=== PATIENT | female | born 1945 | race Caucasian/White ===

== ENCOUNTER 2018-03-08 13:15 | Inpatient (IN) | payer BC ==
[~2018-03-08] VITALS: Ht 157.5 cm; Wt 43.1 kg
[2018-03-08] VITALS (7 sets, daily range): BP systolic 88–131; BP diastolic 46–66
--- NOTE | ~2018-03-08 | CON ---
[address] [address] CONSULTATION Name: KOREY RIGGINS Room: [address] IN M.R.#: [id number] Admission: 03/08/18 Attend Phys: Felicia Merino MD Discharge: Date of : 49 Report #: [id number] THIS REPORT FOR: //name// CC: Craig Merino DATE OF SERVICE: 03/14/2018 REQUESTING PHYSICIAN: Dr. Felicia Merino. REASON FOR CONSULT: Ileus. HISTORY OF PRESENT ILLNESS: This is a 72-year-old female with a history of cough, congestion and productive sputum, which was admitted to hospital on 03/08. The patient found to have pneumonia and has been treated with antibiotics since. Yesterday, the patient found to have abdominal distention and some nausea; therefore, CT of abdomen and pelvis was obtained, which showed dilated small and large bowel. Since then, she had a NG tube in place and was started on Reglan. Her abdomen is soft and she reports that she had two very small stools this morning. She denies any nausea or vomiting. The patient reports that she had a colonoscopy about a year and a half ago, which was negative. She denies previous issues with her GI tract. PAST MEDICAL HISTORY: Significant for history of COPD, dyslipidemia, hypertension and pneumonia. ALLERGIES: No known drug allergy. MEDICATIONS: Please refer to MAR. SOCIAL HISTORY: The patient is , smokes 1-2 pack of cigarettes per day for the past 40 years. She denies any alcohol use. FAMILY HISTORY: Negative for GI malignancy. PHYSICAL EXAMINATION: VITAL SIGNS: Reveals blood pressure of 146/67, respirations 16, pulse 89 and temperature 98.1. LUNGS: Clear. CARDIOVASCULAR: Regular. ABDOMEN: Soft, nontender and nondistended. Bowel sounds are positive, but diminished. NG tube in place. LABORATORY DATA: Reveal sodium of 142, potassium 4.0, BUN is 25, creatinine 0.6 [place] [address] CONSULTATION Name: KOREY RIGGINS Room: [address] IN [facility].#: [id number] Admission: 03/08/18 Attend Phys: Felicia Merino MD Discharge: Date of : 47 Report #: [id number] and glucose 108. Liver function tests are all within normal limit. Albumin is 2.2. WBC is 20.9 with hemoglobin of 11.3 and platelet of 252. IMAGING: As discussed above. ASSESSMENT AND PLAN: The patient with ileus who has been started on Reglan and is on NG tube to intermittent suction. We will continue NG tube until midnight, then we clamp it and order a KUB for tomorrow. We may also start her on clear liquids since she had two little stools this morning. To her Reglan, I will add erythromycin 250 IV b.i.d. We will make further recommendation after her x-ray tomorrow. By: 1642 [id number] Baez MD /nt
[2018-03-08] MEDS ORDERED: ASPIR 8181 MG PO (13:33)
[2018-03-08] MEDS ORDERED: ZOCOR20 MG PO (13:33)
[2018-03-08] MEDS ORDERED: MAXZIDE-25 MG1 EACH PO (13:34)
[2018-03-08] MEDS ORDERED: ACTONEL 35 MG35 M1 PO (13:34)
[2018-03-08] MEDS ORDERED: VITAMIN D2000 UNIT PO (13:34)
[2018-03-08 14:19] LABS: HEMATOCRIT 44.5 % (37.0-47.0); HEMOGLOBIN 14.6 gm/dL (12.0-15.0); MCH 30.8 pg (26.0-34.0); MCHC 32.7 g/dL (28.0-37.0); MCV 94.2 fL (80.0-100.0); MPV 9.6 fl. (7.2-11.1); NUCLEATED RBCS 0 /100WBC; PLATELET COUNT* 228 thou/uL (150-400); RBC 4.73 mil/uL (4.20-5.00); RDW-CV 13.4 % (10.5-14.5); WBC 25.4 thou/uL (4.0-11.0)
[2018-03-08 14:27] LABS: APTT 36.1 Seconds (25.0-31.3); INR 1.1; PROTIME 11.6 Seconds (9.20-11.50)
[2018-03-08 14:51] LABS: ABSOLUTE NEUTROPHILS 24.4 thou/uL (1.6-8.1); PLATELET ESTIMATE ADEQUATE
[2018-03-08 14:59] LABS: INFLUENZA A ANTIGEN None Detected (None Detect); INFLUENZA B ANTIGEN None Detected (None Detect)
[2018-03-08 15:44] LABS: BE -1.8 mmol/L (-2 to +3); HCO3 23.9 mmol/L (22.0-26.0); PCO2 43.8 mmHg (35.0-45.0); PO2 64.3 mmHg (75.0-100.0); pH 7.354 (7.340-7.450)
[2018-03-08 15:55] LABS: ANION GAP 12 mmol/L (7-16); BUN 36 mg/dL (7-18); CHLORIDE 96 mmol/L (98-107); CO2 29 mmol/L (21-32); CREATININE 1.1 mg/dL (0.6-1.3); GLUCOSE 94 mg/dL (70-99); SODIUM 137 mmol/L (136-145)
--- NOTE | 2018-03-08 16:02 | EKG ---
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 : 1945 Requested By: Carmelita Chau Order Number: [id number] MD: Herson Duenas Measurements Intervals [place] Rate: 80 P: 77 [place]: 144 QRS: 84 QRSD: 84 T: 72 QT: 379 QTc: 438 Interpretive Statements Sinus arrhythmia Borderline right axis deviation Compared to ECG 12/14/2007 17:54:49 no change Electronically Signed On 03-08-2018 16:02:32 DOG SITTER by Herson Duenas [email or web address] <ELECTRONICALLY SIGNED> By: Herson Duenas MD, [facility] 03/08/18 1602 1325 1325 Herson Duenas MD, [facility] /EPI
[2018-03-08 16:05] LABS: ALBUMIN 2.8 g/dL (3.4-5.0); ALKALINE PHOSPHATASE 123 U/L (46-116); LIPASE 44 U/L (73-393); MAGNESIUM 1.9 mg/dL (1.8-2.4); NT-PRO BRAIN NAT PEPTIDE 589 pg/mL (<300); SGOT 21 U/L (15-37); SGPT 16 U/L (30-65); TOTAL BILIRUBIN 0.8 mg/dL (<0.1-1.0); TOTAL PROTEIN 6.2 g/dL (6.4-8.2); TROPONIN-I LEVEL <0.06 ng/mL (<0.06)
[2018-03-08 20:09] LABS: URINE BILIRUBIN NEGATIVE (Negative); URINE BLOOD NEGATIVE (Negative); URINE CLARITY CLEAR; URINE COLOR YELLOW; URINE GLUCOSE-RANDOM NEGATIVE (Negative); URINE KETONES 1+ (Negative); URINE LEUKOCYTES NEGATIVE (Negative); URINE NITRITE NEGATIVE (Negative); URINE PROTEIN NEGATIVE (Negative); URINE SPECIFIC GRAVITY >= 1.030 (1.005-1.030); URINE UROBILINOGEN 0.2 E.U./dl (0.2-1.0)
[2018-03-09] VITALS (13 sets, daily range): BP systolic 99–137; BP diastolic 40–81
[2018-03-09 04:57] LABS: HEMATOCRIT 36.9 % (37.0-47.0); MCH 31.1 pg (26.0-34.0); MCHC 33.1 g/dL (28.0-37.0); MCV 93.7 fL (80.0-100.0); MPV 10.6 fl. (7.2-11.1); RBC 3.94 mil/uL (4.20-5.00); RDW-CV 13.6 % (10.5-14.5)
[2018-03-09 05:19] LABS: BE -5.1 mmol/L (-2 to +3); HCO3 20.9 mmol/L (22.0-26.0); PCO2 41.9 mmHg (35.0-45.0); PO2 112.9 mmHg (75.0-100.0); pH 7.315 (7.340-7.450)
[2018-03-09 05:45] LABS: ALBUMIN 1.9 g/dL (3.4-5.0); CALCIUM 7.7 mg/dL (8.5-10.1); CREATININE 0.7 mg/dL (0.6-1.3); MAGNESIUM 1.7 mg/dL (1.8-2.4); POTASSIUM 3.6 mmol/L (3.5-5.1); TOTAL BILIRUBIN 0.2 mg/dL (<0.1-1.0); TOTAL PROTEIN 5.7 g/dL (6.4-8.2)
[2018-03-09 05:48] LABS: HEMOGLOBIN 12.2 gm/dL (12.0-15.0)
[2018-03-10] VITALS (26 sets, daily range): BP systolic 89–124; BP diastolic 37–68
[2018-03-10 04:25] LABS: ABSOLUTE BASOPHILS 0.1 thou/uL (0.0-0.2); ABSOLUTE LYMPHOCYTES 0.3 thou/uL (0.8-5.3); ABSOLUTE MONOCYTES 0.5 thou/uL (0.0-1.2); ABSOLUTE NEUTROPHILS 21.3 thou/uL (1.6-8.1); BASOPHILS 0.4 %; HEMATOCRIT 35.7 % (37.0-47.0); HEMOGLOBIN 11.7 gm/dL (12.0-15.0); LYMPHOCYTES 1.4 %; MCH 30.9 pg (26.0-34.0); MCHC 32.7 g/dL (28.0-37.0); MCV 94.6 fL (80.0-100.0); MONOCYTES 2.4 %; NUCLEATED RBCS 0 /100WBC; PLATELET COUNT* 205 thou/uL (150-400); POLYS 95.8 %; RBC 3.77 mil/uL (4.20-5.00); RDW-CV 13.7 % (10.5-14.5); WBC 22.3 thou/uL (4.0-11.0)
[2018-03-10 04:49] LABS: CALCIUM 7.4 mg/dL (8.5-10.1); CREATININE 0.6 mg/dL (0.6-1.3); POTASSIUM 4.2 mmol/L (3.5-5.1); TOTAL BILIRUBIN 0.2 mg/dL (<0.1-1.0); TOTAL PROTEIN 5.7 g/dL (6.4-8.2)
[2018-03-11 00:01] VITALS: BP 121/60
[2018-03-11 04:18] VITALS: BP 108/45
[2018-03-11 05:09] LABS: HEMATOCRIT 35.5 % (37.0-47.0); HEMOGLOBIN 11.7 gm/dL (12.0-15.0); MCH 31.2 pg (26.0-34.0); MCHC 33.1 g/dL (28.0-37.0); MCV 94.4 fL (80.0-100.0); MPV 10.6 fl. (7.2-11.1); RBC 3.76 mil/uL (4.20-5.00); RDW-CV 13.7 % (10.5-14.5); WBC 13.2 thou/uL (4.0-11.0)
[2018-03-11 05:19] LABS: ALBUMIN 2.1 g/dL (3.4-5.0); CALCIUM 7.6 mg/dL (8.5-10.1); CREATININE 0.6 mg/dL (0.6-1.3); MAGNESIUM 2.2 mg/dL (1.8-2.4); POTASSIUM 4.1 mmol/L (3.5-5.1); TOTAL BILIRUBIN 0.2 mg/dL (<0.1-1.0); TOTAL PROTEIN 5.7 g/dL (6.4-8.2)
[2018-03-11 07:25] VITALS: BP 119/54
[2018-03-11 11:49] VITALS: BP 105/46
[2018-03-11 15:37] VITALS: BP 118/65
[2018-03-11 19:30] VITALS: BP 125/67
[2018-03-12] VITALS: BP 115/57
[2018-03-12 04:00] VITALS: BP 137/65
[2018-03-12 04:57] LABS: HEMATOCRIT 33.9 % (37.0-47.0); HEMOGLOBIN 11.3 gm/dL (12.0-15.0); MCH 31.3 pg (26.0-34.0); MCHC 33.2 g/dL (28.0-37.0); MCV 94.4 fL (80.0-100.0); MPV 9.7 fl. (7.2-11.1); RBC 3.59 mil/uL (4.20-5.00); RDW-CV 13.9 % (10.5-14.5); WBC 13.4 thou/uL (4.0-11.0)
[2018-03-12 05:10] LABS: CALCIUM 7.5 mg/dL (8.5-10.1); CREATININE 0.6 mg/dL (0.6-1.3); MAGNESIUM 2.2 mg/dL (1.8-2.4); POTASSIUM 4.2 mmol/L (3.5-5.1)
[2018-03-12 08:00] VITALS: BP 116/68
[2018-03-12 12:00] VITALS: BP 105/58
[2018-03-12 16:00] VITALS: BP 127/66
[2018-03-12 20:00] VITALS: BP 146/76
[2018-03-13] VITALS: BP 107/52
[2018-03-13 04:00] VITALS: BP 111/59
[2018-03-13 04:55] LABS: HEMATOCRIT 32.1 % (37.0-47.0); HEMOGLOBIN 10.7 gm/dL (12.0-15.0); MCH 31.3 pg (26.0-34.0); MCHC 33.4 g/dL (28.0-37.0); MCV 93.8 fL (80.0-100.0); MPV 9.6 fl. (7.2-11.1); RBC 3.42 mil/uL (4.20-5.00)
[2018-03-13 05:40] LABS: ALBUMIN 2.2 g/dL (3.4-5.0); CALCIUM 7.7 mg/dL (8.5-10.1); CREATININE 0.6 mg/dL (0.6-1.3); MAGNESIUM 2.3 mg/dL (1.8-2.4); TOTAL BILIRUBIN 0.3 mg/dL (<0.1-1.0); TOTAL PROTEIN 5.3 g/dL (6.4-8.2)
[2018-03-13 07:54] VITALS: BP 148/70
--- NOTE | 2018-03-13 10:39 | CON ---
[address] [address] CONSULTATION Name: KOREY RIGGINS Room: [address] IN M.R.#: [id number] Admission: 03/08/18 Attend Phys: Felicia Merino MD Discharge: Date of : 49 Report #: [id number] THIS REPORT FOR: //name// CC: Craig Merino MD DATE OF SERVICE: 03/12/2018 PULMONARY CONSULTATION ATTENDING PHYSICIAN: Felicia Merino MD LOCATION: She is located in room 202 and I do not know who her primary care physician is. INDICATION FOR CONSULTATION: COPD, slowly resolving pneumonia. CLINICAL SUMMARY: The patient is a 72-year-old female, current smoker, was admitted to the hospital several days ago after 5-7 days of malaise, nausea with vomiting, cough with yellow sputum. She has had a history of recurrent bronchitis. She thinks she had a diagnosis of pneumonia some 30 years ago. She is supposed to be using Spiriva at home and maybe a short-acting inhaler. She sees Dr. Martín Borjas, my partner in the office. She has not been oxygen or steroid dependent. I am not sure if she is up-to-date on her immunizations or not, that history cannot be obtained. I see her also in the office as part of my practice for his lung problems also. The patient was still smoking 1 pack to 1-1/2 packs of cigarettes a day, states she quit maybe 3 or 4 days ago. She had moderate high grade fever, 37-38 degrees with some chills and sweats. She had some difficulty swallowing. She has had a persistent right middle lobe and right lower lobe infiltrate. Gases have been good on 2 liters. She is not on oxygen at home. 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 PAST MEDICAL HISTORY: She has a history of COPD, again sees Dr. Borjas. Has a history of hyperlipidemia and also osteopenia and some mild peripheral edema. PAST SURGICAL HISTORY: None. MEDICATIONS: Her outpatient medications include simvastatin 20 mg daily, aspirin 81 mg daily, Actonel 35 mg p.o. every 3 weeks, Maxzide 25 mg 1 tablet daily for edema, vitamin D3 at 2000 units once daily. Current medications in the hospital include DuoNeb treatments every 4 hours, Reglan 10 mg IV push every 6 hours, Solu-Medrol 62.5 mg IV every 8 hours, benzonatate, Tessalon Perles 100 mg q. 6, ceftriaxone 1 g [place] [address] CONSULTATION Name: JESSI RIGGINSNA Alan Room: [address] IN M.R.#: [id number] Admission: 03/08/18 Attend Phys: Felicia Merino MD Discharge: Date of : 47 Report #: [id number] and was on azithromycin that has been resolved. Still on a Nicoderm patch 21 mg daily. ALLERGIES: She has no known medical allergies. FAMILY HISTORY: Negative for premature cardiopulmonary disease. SOCIAL HISTORY: Again, she is . Her has lung problems also. She smokes about 1 pack or 1-1/2 packs a day, has a 60-65 pack year history of smoking. Denies any alcohol or illicit drug use. 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 REVIEW OF SYSTEMS: A 14-point review of systems reviewed and negative except for pertinent positives in HPI. PHYSICAL EXAMINATION: GENERAL: This is an ill-appearing 72-year-old female accompanied by her . VITAL SIGNS: Blood pressure is 128/66, heart rate is 96, respirations were 16, slightly labored, temperature is 36.8 degrees, saturation on 2 liters is 94%. She is 5 feet 3 inches tall and weight is 53 kilograms or 112 pounds. BMI is 21. HEENT: Mucous membranes are moist. Sinuses nontender. Pharynx shows moist membranes without exudate. Tongue is clear. NECK: Supple, without nodes. She has no increase in jugular venous pressure. Her sternocleidomastoid muscles appear to be hypertrophied from COPD. CHEST: Shows bilateral rhonchi and expiratory wheeze, mostly posteriorly with prolonged expiratory phase and crackles in the right lower lobe more than the left lower lobe. Some use of accessory muscles is noted. CARDIOVASCULAR: Shows decreased heart tones, regular rate and rhythm of 96. No murmur, gallop or rub. ABDOMEN: Soft, without masses or megaly. EXTREMITIES: No calf tenderness. No cyanosis, clubbing or edema. NEUROLOGIC: Strength is 2-3/5+. SKIN: Dry and intact. LABORATORY DATA: From today, 03/12/2018, hemoglobin is 11, white count 13,400, MCV is 94 and platelets are 194,000, normal differential was noted. She has increased absolute neutrophil count. Chemistry today shows sodium 142, potassium 4.2, carbon dioxide 28, BUN is 30, creatinine 0.6, glucose is 134, calcium is 7.5 and LFTs within normal limits. Albumin is low at 2.1, prealbumin is low at 14.9. Lipase was normal. Other serology, influenza A and B nasopharyngeal swabs were negative. She has not had a respiratory viral panel. ABGs on 2 liters from 03/09/2018 showed a pO2 of 112, pH of 7.31, pCO2 is 42, bicarbonate is 20, O2 sats 97%. Base excess was negative 0.5. Chest x-ray shows right middle lobe, right lower lobe pneumonia [place] [address] CONSULTATION Name: KOREY RIGGINS Alan Room: [address] IN [facility].#: [id number] Admission: 03/08/18 Attend Phys: Felicia Merino MD Discharge: Date of : 47 Report #: [id number] hyperinflation, no masses or tumors are noted. IMPRESSION: 1. Community-acquired pneumonia, right middle lobe, right lower lobe, could be related to intermittent aspiration, could be related to day care exposure. 2. Chronic tobacco use with probably moderate chronic obstructive pulmonary disease. She is not oxygen or steroid dependent at least at this time. 3. Bronchospasm, needs better control. PLAN: Continue current medications. We will add oral bronchodilators, albuterol tablets, Montelukast 10 mg daily to see if we can cut down her wheezing. I have already increased her DuoNeb treatments to every 4 hours [id number] to see if we can cut down some of her bronchospasm, probably another chest x-ray in 48 hours if needed, then we can do a CT of her chest and make sure there are no masses or lesions or endobronchial lesions. No evidence of sinus problems causing her issues as far as recurrent pneumonias, but certainly, her esophageal reflux and intermittent aspiration may be a contributing factor. I do not think she needs fiberoptic bronchoscopy at least at this time, but we will keep that as a consideration. I will try and get the outpatient records from Dr. Borjas and see if we have any PFTs on the patient to see how significant her obstructive airways disease is. Thanks again for allowing us to participate in this lady's care. We will follow up along with you while she is in the hospital. <ELECTRONICALLY SIGNED> By: González Vences MD 03/13/18 1039 1655 [id number] Warner MD /nt
[2018-03-13 12:00] VITALS: BP 130/62
[2018-03-13 16:00] VITALS: BP 102/51
[2018-03-13 20:00] VITALS: BP 147/76
[2018-03-14] VITALS: BP 128/58
[2018-03-14 04:00] VITALS: BP 115/51
[2018-03-14 04:38] LABS: HEMATOCRIT 34.7 % (37.0-47.0); HEMOGLOBIN 11.3 gm/dL (12.0-15.0); MCH 30.8 pg (26.0-34.0); MCHC 32.6 g/dL (28.0-37.0); MCV 94.4 fL (80.0-100.0); RBC 3.68 mil/uL (4.20-5.00); RDW-CV 13.9 % (10.5-14.5); WBC 20.9 thou/uL (4.0-11.0)
[2018-03-14 04:42] LABS: CALCIUM 7.8 mg/dL (8.5-10.1); CREATININE 0.6 mg/dL (0.6-1.3); MAGNESIUM 2.3 mg/dL (1.8-2.4)
[2018-03-14 08:16] VITALS: BP 135/68
[2018-03-14 12:00] VITALS: BP 121/58
[2018-03-14 16:00] VITALS: BP 146/67
[2018-03-14 20:00] VITALS: BP 145/66
[2018-03-15] VITALS: BP 127/61
[2018-03-15 04:00] VITALS: BP 128/69
[2018-03-15 04:29] LABS: HEMATOCRIT 35.1 % (37.0-47.0); HEMOGLOBIN 11.4 gm/dL (12.0-15.0); MCH 30.4 pg (26.0-34.0); MCHC 32.5 g/dL (28.0-37.0); MCV 93.6 fL (80.0-100.0); MPV 10.2 fl. (7.2-11.1); RBC 3.75 mil/uL (4.20-5.00); RDW-CV 13.8 % (10.5-14.5); WBC 20.4 thou/uL (4.0-11.0)
[2018-03-15 04:42] LABS: ALBUMIN 2.4 g/dL (3.4-5.0); CALCIUM 7.7 mg/dL (8.5-10.1); CREATININE 0.5 mg/dL (0.6-1.3); MAGNESIUM 2.2 mg/dL (1.8-2.4); POTASSIUM 4.2 mmol/L (3.5-5.1); TOTAL BILIRUBIN 0.5 mg/dL (<0.1-1.0); TOTAL PROTEIN 5.5 g/dL (6.4-8.2)
[2018-03-15 08:00] VITALS: BP 147/57
[2018-03-15 11:56] VITALS: BP 119/55
[2018-03-15 15:49] VITALS: BP 120/57
[2018-03-15 19:30] VITALS: BP 118/45
[2018-03-16] VITALS: BP 108/40
[2018-03-16 04:00] VITALS: BP 121/58
[2018-03-16 08:06] VITALS: BP 103/61
[2018-03-16 11:45] VITALS: BP 111/45
[2018-03-16 16:00] VITALS: BP 98/62
[2018-03-16 19:30] VITALS: BP 111/45
[2018-03-17] VITALS: BP 102/48
[2018-03-17 04:30] VITALS: BP 106/48
[2018-03-17 08:02] VITALS: BP 109/51
[2018-03-17 12:39] VITALS: BP 134/65
[2018-03-17 16:52] VITALS: BP 132/53
[2018-03-17 19:40] VITALS: BP 99/51
[2018-03-18] VITALS: BP 110/49
[2018-03-18 04:00] VITALS: BP 118/55
[2018-03-18 08:00] VITALS: BP 112/46
[2018-03-18 12:00] VITALS: BP 122/57
[2018-03-18 16:44] VITALS: BP 106/37
[2018-03-18 19:50] VITALS: BP 119/50
[2018-03-19] VITALS: BP 113/57
[2018-03-19 04:00] VITALS: BP 124/47
[2018-03-19 08:00] VITALS: BP 111/70
[2018-03-19 12:00] VITALS: BP 102/45
[2018-03-19 12:16] LABS: HEMATOCRIT 33.6 % (37.0-47.0); HEMOGLOBIN 10.9 gm/dL (12.0-15.0); MCH 30.6 pg (26.0-34.0); MCHC 32.5 g/dL (28.0-37.0); MCV 93.9 fL (80.0-100.0); MPV 9.7 fl. (7.2-11.1); NUCLEATED RBCS 0 /100WBC; PLATELET COUNT* 226 thou/uL (150-400); RBC 3.58 mil/uL (4.20-5.00); RDW-CV 13.9 % (10.5-14.5); WBC 29.4 thou/uL (4.0-11.0)
[2018-03-19 13:02] LABS: ABSOLUTE LYMPHOCYTES 0.9 thou/uL (0.8-5.3); ABSOLUTE MONOCYTES 0.9 thou/uL (0.0-1.2); ABSOLUTE NEUTROPHILS 27.6 thou/uL (1.6-8.1); PLATELET ESTIMATE ADEQUATE
[2018-03-19 13:03] LABS: ANISOCYTOSIS 1+; POIKILOCYTOSIS 1+
[2018-03-19 15:30] VITALS: BP 104/45
[2018-03-19 19:50] VITALS: BP 112/49
[2018-03-20] VITALS: BP 120/47
[2018-03-20 04:00] VITALS: BP 104/44
[2018-03-20 08:00] VITALS: BP 107/47
[2018-03-20 11:30] VITALS: BP 114/39
[2018-03-20] MEDS ORDERED: ALBUTEROL SULFAT2 MG PO (15:22)
[2018-03-20] MEDS ORDERED: ALBUTEROL2.5 MG/31 INH (15:23)
[2018-03-20] MEDS ORDERED: LORAZEPAM 22 MG/1 ML IV PUSH (15:25)
[2018-03-20] MEDS ORDERED: BISACODYL SUPP10 MG RECTAL (15:26)
[2018-03-20] MEDS ORDERED: IPRAT-ALBUT 0.5-3 ML INH (15:28)
[2018-03-20] MEDS ORDERED: ERYTHROMYCIN250 M1 PO (15:29)
[2018-03-20] MEDS ORDERED: FLEET ENEMA133 ML RECTAL (15:30)
[2018-03-20] MEDS ORDERED: ENOXAPARIN40 MG/0.1 SUBQ (15:31)
[2018-03-20] MEDS ORDERED: MIRALAX17 GM PO (15:33)
[2018-03-20] MEDS ORDERED: ALUM-MAG HYDRO360 ML PO (15:36)
[2018-03-20] MEDS ORDERED: NICOTINE TRANSD21 M1 (15:37)
[2018-03-20] MEDS ORDERED: SINGULAIR 10 MG10 M1 PO (15:38)
[2018-03-20] MEDS ORDERED: PEPCID20 MG PO (15:38)
[2018-03-20] MEDS ORDERED: SCOPOLAMINE1 EACH TRANSDERM (15:39)
[2018-03-20] MEDS ORDERED: TESSALON PERLE100 MG PO (15:39)
[2018-03-20] MEDS ORDERED: TYLENOL EXTRA500 MG PO (15:41)
[2018-03-20] MEDS ORDERED: ONDANSETRON HCL4 M2 PO (15:41)
[2018-03-20] MEDS ORDERED: PREDNISONE 20 M20 MG PO (15:42)
[2018-03-20 15:43] VITALS: BP 114/39
[2018-03-20 16:00] VITALS: BP 126/49
== END 2018-03-20 16:53 | DRG 871 ==
LOC: M.ERS 13:15 → M.ICU 15:05 → M.2W 15:05 → M.TBA-ER 15:05 → M.ICU 17:06 → M.2W 03-10 17:00
PROVIDERS: Internal Medicine; Physician Assistant; ADMIT Internal Medicine
PROC: 02HV33Z Insertion of Infusion Device into Superior Vena Cava, Percutaneous Approach (ICD-10-PCS; principal; 2018-03-08)
PROC: 0D9670Z Drainage of Stomach with Drainage Device, Via Natural or Artificial Opening (ICD-10-PCS; 2018-03-14)
DX: A41.9 Sepsis, unspecified organism (principal); J15.6 Pneumonia due to other Gram-negative bacteria; K56.7 Ileus, unspecified; K56.600 Partial intestinal obstruction, unspecified as to cause; J44.0 Chronic obstructive pulmonary disease with (acute) lower respiratory infection; J44.1 Chronic obstructive pulmonary disease with (acute) exacerbation; I95.9 Hypotension, unspecified; I10 Essential (primary) hypertension; K59.00 Constipation, unspecified; R09.02 Hypoxemia; M81.0 Age-related osteoporosis without current pathological fracture; F17.210 Nicotine dependence, cigarettes, uncomplicated; E78.5 Hyperlipidemia, unspecified; E78.00 Pure hypercholesterolemia, unspecified; Z79.82 Long term (current) use of aspirin; Z79.899 Other long term (current) drug therapy

== ENCOUNTER 2018-03-20 16:03 | Inpatient (IN) | payer BC ==
[~2018-03-20] VITALS: Ht 157.5 cm; Wt 41.0 kg
--- NOTE | ~2018-03-20 | CON ---
[address] [address] CONSULTATION Name: GILSONKOREY M Room: [address] IN M.R.#: [id number] Admission: 03/20/18 Attend Phys: Alma Coleman DO Discharge: Date of : 47 Report #: [id number] THIS REPORT FOR: //name// CC: Craig Coleman DATE OF SERVICE: 03/22/2018 HISTORY OF PRESENT ILLNESS: This is a pleasant 73-year-old female with past medical history significant for hypertension, COPD and chronic constipation. The patient was admitted with an episode of bronchitis and is currently in rehabilitation. GI service has been consulted for evaluation of her chronic constipation. The patient reports that she has about 1 bowel movement every 3-4 days at home; however, this is soft and well formed, and the patient denies having any abdominal pain or rectal pain while passing the stool. The patient reports that since her hospitalization, she has begun to feel worse with lower abdominal distention and pain. The patient currently is on polyethylene glycol, docusate and enemas and on these 3 medications, she passes bowel movement once every other day. The patient appears to have pain and cramping when she is passing bowel movement. She denies having any blood in her stool. The patient denies any nausea, vomiting or melena. There has been no recent weight loss. PAST MEDICAL HISTORY: COPD, chronic idiopathic constipation. PAST SURGICAL HISTORY: Nonsignificant. FAMILY HISTORY: There is no family history of colorectal cancer. SOCIAL HISTORY: The patient has a [id number] smoking history and is a current active smoker. She denies alcohol or recreational drug use. REVIEW OF SYSTEMS: Comprehensive 10-point review of systems is negative except what is mentioned in the HPI. PHYSICAL EXAMINATION: VITAL SIGNS: Temperature 36.8, pulse rate 65, respirations 20, blood pressure 113/38. GENERAL: The patient is alert, awake, oriented x 3. HEENT: Pupils are equal, round, reactive to light and accommodation. Mucous membranes are moist. There is no congestion. LUNGS: Clear to auscultation bilaterally. CARDIOVASCULAR: Rate and rhythm regular, S1, S2 present. ABDOMEN: Soft. There is no distention, guarding or rigidity. SKIN: Warm and dry. LABORATORY DATA: Hemoglobin 11.0, hematocrit 33.6, platelet count 177, [place] [address] CONSULTATION Name: KOREY RIGGINS Room: [address] IN [facility]#: [id number] Admission: 03/20/18 Attend Phys: Alma Coleman DO Discharge: Date of : 47 Report #: [id number] count 21.8. Sodium 144, potassium 3.3, chloride 101, BUN 30, creatinine 0.6, calcium 9.1. Abdomen and pelvis CT on 03/13/2018 showed diffuse gaseous distention of the small bowel and colon consistent with ileus with pretty attenuation of sigmoid colon. ASSESSMENT AND PLAN: This is a pleasant 73-year-old female, with chronic idiopathic constipation, who is presenting with worsening of constipation during her hospitalization for bronchitis and pneumonia. I discussed at length with the patient the options available for treatment of chronic idiopathic constipation. The patient reports that she does not want to have any abdominal pain or cramps when she passes stools, and she refused to take GoLYTELY because that gives her nausea. The patient currently is on polyethylene glycol, senna and daily enemas and these have so far failed to relieve her constipation any significantly. I discussed with the patient the possibility of starting Linzess, but in the beginning, she was very reluctant when I mentioned that she may have abdominal cramps in response to this medication. I told the patient that it is impossible for her to have absolutely no amount of pain, especially now that she has had retained stools for several days. The patient said she would try only half dose of Linzess and would try Linzess alone and would not combine it with any other medications. Therefore, for now, we will put her on 145 mcg of Linzess. She would like to mix it in applesauce for consumption as she does not want to take any pills. Depending on her response to therapy, we will consider changing or escalating the dose. Thank you for this consultation. By: 1359 [id number] Reyes MD /cal[place]
[~2018-03-20 16:03] MED LIST: ACTONEL 35 MG35 M1 PO; ALBUTEROL SULFAT2 MG PO; ALBUTEROL2.5 MG/31 INH; ALUM-MAG HYDRO360 ML PO; ASPIR 8181 MG PO; BISACODYL SUPP10 MG RECTAL; ENOXAPARIN40 MG/0.1 SUBQ; ERYTHROMYCIN250 M1 PO; FLEET ENEMA133 ML RECTAL; IPRAT-ALBUT 0.5-3 ML INH; LORAZEPAM 22 MG/1 ML IV PUSH; MAXZIDE-25 MG1 EACH PO; MIRALAX17 GM PO; NICOTINE TRANSD21 M1; ONDANSETRON HCL4 M2 PO; PEPCID20 MG PO; PREDNISONE 20 M20 MG PO; SCOPOLAMINE1 EACH TRANSDERM; SINGULAIR 10 MG10 M1 PO; TESSALON PERLE100 MG PO; TYLENOL EXTRA500 MG PO; VITAMIN D2000 UNIT PO; ZOCOR20 MG PO
[2018-03-20 17:00] VITALS: BP 131/56
[2018-03-20 20:13] VITALS: BP 136/55
--- NOTE | 2018-03-20 21:40 | NUR ---
AWAKENED FOR HS REASSESSMENT AND MEDICATION PASS. 02 NC AT TWO LITERS. REFUSED ALL PO MEDICATIONS EXCEPT FOR COLACE. REFUSED LOVENOX. EXPLAINED TO PATIENT THAT SHE WAS NOW ON PO ANTIBITOIC. PATIENT STATES SHE WILL ONLY TAKE AN ANTIBIOTIC IN THE IV FORM. SNACK PROVIDED.
--- NOTE | 2018-03-21 04:58 | NUR ---
RESTED ON/OFF. 02 NC AT TWO LITERS. HOURLY ROUNDING IN PROGRESS.
[2018-03-21 08:07] VITALS: BP 117/54
[2018-03-21 11:28] LABS: HEMATOCRIT 33.6 % (37.0-47.0); MCHC 32.9 g/dL (28.0-37.0); MCV 94.3 fL (80.0-100.0); MPV 10.1 fl. (7.2-11.1); RBC 3.56 mil/uL (4.20-5.00); RDW-CV 14.3 % (10.5-14.5); WBC 21.8 thou/uL (4.0-11.0)
[2018-03-21 11:51] LABS: CALCIUM 9.1 mg/dL (8.5-10.1); CREATININE 0.6 mg/dL (0.6-1.3); POTASSIUM 3.3 mmol/L (3.5-5.1)
--- NOTE | 2018-03-21 16:36 | NUR ---
PT HAS PARTICIPATED WITH THERPIES AND CALLS FOR ASSIST TO AMBULATE WITH GAITBELT AND WALKER. PT IS CONTINENT OF B+B AND VOIDS WELL. PT HAS HX OF CONSTIPATION AND WAS GIVEN DULCOLAX SUPP THIS AM WITH RESULTS OF 3 GOLFBALL SIZE HARD STOOL. PT ASSISTED TO BATHROOM. PT TAKES PILLS 1 AT A TIME AND SPACES THEM DUE TO PILLS BEING DIFFICULT TO SWALLOW.PT HAS EATEN MEALS IN DINNINGROOM. PT DENIES PAIN . PT DOES HAVE LARGE BRUSING TO RT. SIDE,BACK AND HIP NOTICED LAST EVENING ON ADMISSION WITH PICTURE TAKEN BEFORE DISCHARGE FROM 2 AND ON CHART.PT IS ALERT AND ORIENTATED.
--- NOTE | 2018-03-21 16:43 | NUR ---
SW met with pt to complete initial assessment, introduce self, and SW role on inpt rehab unit. Pt alert, oriented. Pt lives at home with her . 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 Pt does not have any DME or history of HH services or SNF. SW to continue to follow to assist with safe dc planning.
--- NOTE | 2018-03-21 20:05 | NUR ---
SITTING UP IN CHAIR VISITING WITH MULTIPLE FAMILY MEMBERS. DAUGHTER, EYAD HERE ENCOURAGING PATIENT TO TAKE MEDICATIONS. PATIENT TOOK PRN MIRALAX WITH APPLE JUICE WITH EYAD'S ENCOURAGEMENT. 02 NC AT ONE LITER.
[2018-03-21 20:15] VITALS: BP 113/38
--- NOTE | 2018-03-22 05:38 | NUR ---
RESTED QUIETLY. NO COMPLAINTS VOICED. HOURLY ROUNDING IN PROGRESS.
[2018-03-22 08:23] VITALS: BP 133/54
--- NOTE | 2018-03-22 11:28 | NUR ---
Nutrition: Pt admitted to rehab with PNA. RD saw pt on other floor. Wt has trended downward since hospital admot: 112 to 88#. Ensure Enlive is ordered b.i.d. Pt doesn't like the taste of the food here. She is eating 5% to 70% of meals. Reglan is started. H/o: poor appetite 2/2 ileus. No recent albumin levels. RX: steroids, D3. Heart Healthy diet ordered. Mild risk. Will follow weekly for po intake, wt, labs.
--- NOTE | 2018-03-22 16:13 | NUR ---
ASSUMMED CARE OF PT AT 0730, PT ALERT AND ORIENTED, TRANSFERS WITH SBA GB WALKER AND CUEING, PT COMPLAINING OF ABDOMINAL CRAMPING, TEARFUL AT TIMES, PT STATES HAS PASSED SOME GAS BUT NO STOOL, FLEETS ENEMA GIVEN WITH SMALL RESULTS OF HARD STOOL, PT ALSO COMPLAINS OF SOME NAUSEA BUT NO EMESIS, APETITE DECREASED BUT TAKING FLUIDS, PT REFUSED SOME OF HER THERAPIES BUT MORNING PROGRESSES STATES SHE IS FEELING MUCH BETTER, GI CONULTED AND HERE TO SEE PT, BOWEL MEDS CHANGED AND ORDER FOR SMALLER DOSAGE OF LINZESS, PHARMACY DOES NOT CARRY THIS MED, FAMILY WILL NEED TO FILL SCRIPT AND THEN PT MAY TAKE OWN SUPPLY, AWAITING OR DAUGHTER TO VISIT SO SCRIPT CAN BE GIVEN TO THEM TO BE FILLED, PT REFUSED SEVERAL OF HER MEDICATIONS THIS SHIFT, STATES SHE DOES NOT WANT TO TAKE THEM, PICC IN RIGHT ARM PATENT, BOTH PORTS FLUSH WELL, PT ENCOURAGED TO REPOSTION EVERY 2 HOURS, UP IN CHAIR FOR SHORT PERIODS, COCCYX AREA SLIGHTLY REDDENED, BLANCHES WELL, HOURLY ROUNDING COMPLETED, REFUSED TO EAT LUNCH IN DININGROOM, ASSESSMENT COMPLETE, WILL COTNINUE TO MONITOR.
[2018-03-22 19:00] VITALS: BP 104/42
--- NOTE | 2018-03-23 01:31 | NUR ---
ASSUMED CARE @ 1943-03/22-SUNDAY.SITS IN W/C W/ CONTINOUS O2 @ 2L/NC.IN DINING ROOM TO CELEBRATE BIRTHDAY W/ FAMILY.FAMILY BROUGHT CAKE.DAUGHTER WHO IS AN RN-AMBULATING W/ PATIENT W/ GAIT BELT & WALKER W/ SBA @ 2014 FROM DINING ROOM TO ROOM.BED ALARM PUT ON @ 2024.WANTS ONLY SIDERAILS X2 UP.HOB UP TO 45 DEGREES WHILE IN BED.EDEMA-+1 PITTING FEET & ANKLES.REFUSED HS MES- -PEPCID,SINGULAIR & LOVENOX SHOT.AT 2049-2 PORTS PICC LINE RIGHT UPPER ARM GOOD BLOOD RETURN & FLUSHES WELL.SBA FOR ALL TRANSFERS & TOILETING.WEARS PULL UPS.CHANGES INTO NIGHT GOWN & PULL UPS BY SELF-W/ SBA.ON HOURLY ROUNDS.PAPER NOVELTY MAKER DOING ODD HOUR ROUNDS.
--- NOTE | 2018-03-23 05:22 | NUR ---
SLEPT LATE @ 0200.TURNS SELF @ NIGHT.BRP W/ SBA X1.AWAKENED BY RESP THERAPIST @ 0350 FOR RESP.TX.O2 SAT-99%.O2 DC'D BY RESP.THERAPIST.AWAKE @ 0400-WATCHING TV & EATING ROLL W/ VANILLA ICE CREAM @ THIS TIME.TOOK ALL PEACHES & APPLE JUICE HS SNACKS.
[2018-03-23 07:00] VITALS: BP 114/38
--- NOTE | 2018-03-23 14:57 | NUR ---
DAUGHTER,EYAD, ATTEMPTED TO GET LINZESS PRESCRIPTION FILLED AT [facility] ON [address] PT[facility]S [facility] DID NOT HAVE IN STOCK. PHARMACY SAID MEDICATION NEEDS PRIOR AUTH. CM CALLED [facility] AND OBTAINED PHONE NUMBER AND ID NUMBER TO CALL IN FOR PRIOR AUTH. CALLED IN AND SPOKE WITH MACHINE BANDER AND CELLOPHANER. QUESTIONS ANSWERED. MED WAS PRIOR AUTH'D WITH #[id number]. NOTIFIED TIFFANIERN AND PTS DAUGHTER,EYAD.
--- NOTE | 2018-03-23 16:36 | NUR ---
ASSUMMED CARE OF PT AT 0730, PT ALERT AND ORIENTED, PT TRANSFERS WITH SBA, GB WALKER, PT TURNS OFF CHAIR ALARM AND HAS BEEN UP WITHOUT ASSIST, PT INSTRUCTED ABOUT CALLING FOR ASSIST SEVERAL TIMES THIS SHIFT, PT VOIDS PER TOILET, NO BM THIS SHIFT, PICC LINE INTACT, WILL ASK PHYSCIAN FOR D/C ORDER, PT 02 SAT CHECKED THIS AM AND ONLY 87%, O2 APPLIED AT 1L, O2 REMOVED THIS PM , SATS RECHECKED AND SAT AT 91-92%, O2 LEFT OFF, PT DENIES PAIN, STARTED ON LINZESS THIS PM FOR BOWELS, BEING MEDICATION WAS NOT STARTED UNTIL THIS PM, PER PHARMACY PT TO NOT HAVE ADDITIONAL DOSE TODAY, BID DOSING WILL START IN AM, EDEMA IN BILATERAL LEGS, ELEVATED WHEN IN BED,TO DININGROOM FOR LUNCH PARTICIPATED IN ALL THERAPIES, HOURLY ROUNDING COMPLETED, ASSESSMENT COMPLETE, WILL CONTINUE TO MONITOR.
[2018-03-23 20:00] VITALS: BP 106/40
[2018-03-24 04:15] LABS: HEMATOCRIT 28.2 % (37.0-47.0); HEMOGLOBIN 9.6 gm/dL (12.0-15.0); MCH 32.1 pg (26.0-34.0); MCV 94.3 fL (80.0-100.0); NUCLEATED RBCS 0 /100WBC; PLATELET COUNT* 137 thou/uL (150-400); RBC 2.99 mil/uL (4.20-5.00); RDW-CV 14.4 % (10.5-14.5); WBC 13.4 thou/uL (4.0-11.0)
[2018-03-24 04:31] LABS: ALBUMIN 2.6 g/dL (3.4-5.0); CALCIUM 8.7 mg/dL (8.5-10.1); CREATININE 0.6 mg/dL (0.6-1.3); POTASSIUM 3.4 mmol/L (3.5-5.1); TOTAL BILIRUBIN 0.6 mg/dL (<0.1-1.0); TOTAL PROTEIN 4.9 g/dL (6.4-8.2)
--- NOTE | 2018-03-24 06:01 | NUR ---
ASSUMED CARE AT 1920. ALERT AND ORIENTED. PLEASANT. REVIEWED MEDS WITH PT AND SHE REFUSED TO TAKE MAJORITY OF THEM. TOOK PILLS WHOLE WITHOUT ISSUES. BLE EDEMA. LEGS UP ONTO PILLOW. MIN ASSIST WITH GAIT BELT AND WALKER. UP TO BATHROOM. DOES OWN CARES. WAS UP MAJORITY OF NIGHT. SAYS THAT WILL SLEEP AFTER 0400. USED CALL LIGHT APPROPRIATELY. BED ALARM ON.
[2018-03-24 06:21] LABS: ABSOLUTE LYMPHOCYTES 0.5 thou/uL (0.8-5.3); ABSOLUTE MONOCYTES 0.4 thou/uL (0.0-1.2); ABSOLUTE NEUTROPHILS 12.5 thou/uL (1.6-8.1); METAMYELOCYTES 1 %; PLATELET ESTIMATE ADEQUATE
[2018-03-24 09:19] VITALS: BP 112/29
--- NOTE | 2018-03-24 16:08 | NUR ---
PT HAS PARTICIPATED WITH THERAPIES TODAY AND CALLS FOR ASSIST TO BATHROOM,UP WITH GAITBELT,WALKER AND SBA OF 1 WITH STEADY GAIT. PT EATS MEALS BETTER. PT REMAINS ALERT AND ORIENTATED. HOURLY ROUNDING CONTINUES.
[2018-03-24 20:00] VITALS: BP 119/49
--- NOTE | 2018-03-25 05:21 | NUR ---
ASSUMED CARE AT 1920. ALERT AND ORIENTED. CALM AND COOPERATIVE. DENIED ANY PAIN. TAKES PILLS WHOLE. BLE EDEMA. LEGS UP IN BED. DL PICC CEDRIC DRESSING CHANGED. MIN ASSIST WITH GAIT BELT AND WALKER. UP TO BATHROOM. DOES OWN CARES. SLEPT BETTER TONIGHT. NO ISSUES OVERNIGHT. USED CALL LIGHT APPROPRIATELY. BED ALARM ON.
[2018-03-25 09:00] VITALS: BP 122/51
[2018-03-25 09:50] VITALS: BP 112/25
--- NOTE | 2018-03-25 16:42 | NUR ---
ASSUMMED CARE OF PT AT 0730, PT ALERT AND ORIENTED, UP WITH SBA GB AND WALKER, GAIT SLIGHTLY UNSTEADY AT TIMES, TAKING FOOD AND FLUIDS WELL, VOIDS PER TOILET, LARGE SOFT BM THIS SHIFT, PICC LINE PATENT, DENIES PAIN, PARTICIPATED IN ALL THERAPIES, HOURLY ROUNDING COMPLETED, TO DININGROOM FOR LUNCH, ASSESSMENT COMPLETE, WILL CONTINUE TO MONITOR.
[2018-03-25 20:19] VITALS: BP 120/45
--- NOTE | 2018-03-26 00:04 | NUR ---
ASSUMED CARE AT 1930. PATIENT RESTING IN BED, HAD VISITORS EARLY IN SHIFT. TAKES PILLS ONE AT A TIME WITH WATER. TURNS SELF. REINFORCED SAFETY CONCERNS AND NEEDING TO CALL FOR ASSIST. DOUBLE LUMEN PICC LINE TO RUE FLUSHES WELL. WEARS BRIEF. REFUSES SOME PILLS, SEE MAR. UP WITH SBA, GAIT BELT, WALKER. NO C/O PAIN. HOURLY ROUNDS CONTINUE. BED ALARM ON. CALL LITE IN REACH.
--- NOTE | 2018-03-26 05:36 | NUR ---
SLEPT WELL UNTIL AROUND 0500. PATIENT WAS READING NEWSPAPER WITH HOB ELEVATED. AMB WITH SBA, GAIT BELT, WALKER TO TOILET TO VOID. BRUSHED TEETH AND WASHED FACE AND RETURNED TO BED. WATCHING TV. NO C/O PAIN. HOURLY ROUNDS CONTINUE. BED ALARM ON. CALL LITE IN REACH.
[2018-03-26 07:28] VITALS: BP 117/42
--- NOTE | 2018-03-26 17:03 | NUR ---
ASSUMMED CARE OF PT [id number], PT ALERT AND ORIENTED, TRANSFERS WITH SBA, GB WALKER, GROOMING, BATHING DRESSING DONE STANDING AT SINK IN BATHROOM WITH SET UP, VOIDS PER TOILET, BM X 1 THIS SHIFT, AMBULATES TO DININGROOM, DENIES PAIN, TAKING FOOD AND FLUIDS WELL,PICC LINE PATENT IN CEDRIC, ASKING IF SHE WILL BE GOING HOME SOON, EXPLAINED ABOUT TEAM MEETING TOMORROW. HOURLY ROUNDING COMPLETED, ASSESSMENT COMPLETE, VISITING WITH FAMILY, WILL CONTINUE TO MONITOR.
[2018-03-26 20:00] VITALS: BP 126/48
--- NOTE | 2018-03-27 05:21 | NUR ---
ASSUMED PT CARE AT 1930. PT ALERT AND ORIENTED X4, POLITE AND COOPERATIVE WITH CARES. PT SITTING UP IN BED VISITING WITH FAMILY. TAKES PILLS WHOLE ONE AT A TIME WITH WATER. REFUSES SOME PILLS, SEE MAR. PT CAN TURN SELF IN BED. DOUBLE LUMEN PICC TO RUE, FLUSHES WELL. UP WITH SBA, GAIT BELT AND WALKER TO BATHROOM TO VOID. DENIES PAIN. PT STAYED UP LATE WATCHING TELEVISION AND UP EARLY THIS AM. PT WANTS TO BE MADE MOD I IN ROOM TODAY OR ALTERNATIVELY BE DISCHARGED. BED ALARM ON FOR SAFETY. HOURLY ROUNDING IN PROGRESS, WILL CONTINUE TO MONITOR.
[2018-03-27 08:00] VITALS: BP 122/53
--- NOTE | 2018-03-27 11:10 | NUR ---
I ASSUMED CARE OF THE PATIENT AT 0700. SHE IS ALERT AND ORIENTED X4 AND UP WITH STANDBY ASSISTANCE. HOURLY ROUNDING WAS COMPLETED AND PATIENT NEEDS ARE MET. BED ALARM AND CHAIR ALARM ARE ON AND CALL LIGHT IS IN REACH. PAIN IS MANAGED WITH PRN MEDS. WILL CONTINUE TO MONITOR.
--- NOTE | 2018-03-27 16:35 | NUR ---
TEAM CONFRENCE MEETING HELD TODAY. INFORMED PATIENT AND HER SPOUSE OF MEETING AND PLAN TO RE-TEAM NEXT WEEK WITH POSSIBLE D/C NEXT OR SUNDAY, MOVE PATIENT TO THE INDEPENDENT APARTMENT, AND TRANSITION PATIENT TO MOD-I THIS AFTERNOON IF APPROPRIATE. PATIENT AND SPOUSE IN AGREEMENT. PATIENT PROGRESSING TOWARDS GOALS, BUT BARRIERS ARE INSTABILITY WITH GAIT, DECREASED MOTIVATION, AND SHORT TERM MEMORY DEFICITS. CM WILL REMAIN AVIALABLE TO ASSIST AND FOLLOW NEEDED.
[2018-03-27 20:00] VITALS: BP 122/48
--- NOTE | 2018-03-28 05:07 | NUR ---
ASSUMED PT CARE AT 1930. PT ALERT AND ORIENTED, POLITE AND COOPERATIVE WITH CARES. PT SITTING UP IN BED VISITING WITH . TAKES PILLS WHOLE ONE AT A TIME WITH WATER. REFUSES SOME PILLS, SEE MAR. PT CAN TURN SELF IN BED. DOUBLE LUMEN PICC TO RUE, FLUSHES AND DRAWS WELL. PT IS MOD I IN ROOM WITH WALKER. DENIES PAIN. PT STAYED UP LATE WATCHING TELEVISION. COOPERATIVE WITH LAB DRAW AT 0500. AT APPROXIMATELY 2200 PT'S TWO DAUGHTERS APPROACHED THE DESK TO EXPRESS THEIR DISMAY THAT PT WAS NOT DISCHARGED TODAY. THE RN DAUGHTER EYAD EXPOUNDED HER FRUSTRATIONS AT GREAT LENGTH THAT THERE WAS NO MEDICAL REASON WHY HER MOTHER COULD NOT GO HOME, THAT THE FAMILY FEELS THAT PT IS ONLY BEING KEPT HERE UNTIL NEXT WEEK BECAUSE SHE HAS GOOD INSURANCE. SHE ALSO STATED THAT THE ONLY REASON PT DID NOT LEAVE AMA IS THAT INSURANCE WOULD THEN DENY PAYMENT FOR HER REHAB STAY. SHE WISHES TO SPEAK TO THE PT'S PRINT DECORATOR AND WAS ASSURED THAT HER MESSAGE AND PHONE NUMBER WOULD BE PASSED ON TO [facility]. HOURLY ROUNDING IN PROGRESS, WILL CONTINUE TO MONITOR.
[2018-03-28 05:23] LABS: HEMATOCRIT 27.2 % (37.0-47.0); HEMOGLOBIN 9.3 gm/dL (12.0-15.0); MCH 32.1 pg (26.0-34.0); MCV 94.2 fL (80.0-100.0); MPV 10.2 fl. (7.2-11.1); RBC 2.89 mil/uL (4.20-5.00); RDW-CV 14.7 % (10.5-14.5); WBC 13.3 thou/uL (4.0-11.0)
[2018-03-28 05:34] LABS: ALBUMIN 2.4 g/dL (3.4-5.0); CALCIUM 8.2 mg/dL (8.5-10.1); CREATININE 0.4 mg/dL (0.6-1.3); MAGNESIUM 1.7 mg/dL (1.8-2.4); POTASSIUM 3.3 mmol/L (3.5-5.1); TOTAL BILIRUBIN 0.5 mg/dL (<0.1-1.0); TOTAL PROTEIN 4.6 g/dL (6.4-8.2)
[2018-03-28 08:00] VITALS: BP 127/53
--- NOTE | 2018-03-28 16:00 | NUR ---
ASSUMMED CARE OF PT AT 0730, PT ALERT AND ORIENTED, PT NOTED TO BE UP IN BATHROOM WITHOUT WALKER, PT IS MOD I IN ROOM WITH WALKER, PT EDUCATED ON MOD I ORDER AND WALKER PLACED NEXT TO HER, PT DENIES PAIN,, DENIES NAUSEA, TAKING FFOD AND FLUIDS WELL,02 SATS 92% ON RA .DAUGHTERS ASKING WHY [facility] CAN NOT BE DISCHARGED AND VERY INTENSE VERBALIZATION AT NURSING STATION, WANTS TO TALK WITH PERSON IN CHARGE OF REHAB, FAMILY WANTS PT DISCHARGED AND DOES NOT WANT HER TO LEAVE AMA, FAMILY INFORMED THAT NURSE WOULD NOTIFY APPROPRIATE PERSONNEL, KAREY, AND SUPERVISER TALKED IN LENGTH WITH PT AND DAUGHTERS, PT AGREEABLE TO SET GOAL TO GO HOME WITH WALKER WITH PLAN TO DISCHARGE BY EARLY NEXT WEEK IF GOALS ARE MET, PT REFUSED TO TAKE PREDNISONE THIS AM, PT EDUCATED ON IMPORTANCE OF NOT STOPPING THIS MED QUICKLY AND NEED FOR TAPER, PT DID TAKE PREDNISONE THIS PM AND ORDER OBTAINED FOR TAPER TO BEGIN TOMORROW, PT ALSO REFUSE TO TAKE MAJORITY OF OTHER SCHEDULED MEDS, ORDER OBTAINED TO DISCONTINUE MEDS, PT POTASSIUM 3.3 , ORDER FOR POTASSIUM OBTAINED AND 10 MEQ GIVEN BUT PT REFUSED TO TAKE ADDITIONAL 20 MEQ, STATED SHE WOULD EAT A BANANA WITH EACH MEAL, AND DOES NOT FEEL SHE NEEDS ADDITIONAL POTASSIUM, PT DID PARTICIPATE IN ALL THERAPIES, HOURLY ROUNDING COMPLETED, ASSESSMENT COMPLETE, WILL CONTINUE TO MONITOR.
[2018-03-28 20:00] VITALS: BP 121/60
--- NOTE | 2018-03-29 05:00 | NUR ---
ASSUMED CARES AT 1920. ALERT AND ORIENTED. PLEASANT. TRAVIS IN RM WITH WALKER. PT UNDERSTOOD THAT NEEDED TO CONTINUE TO USE WALKER. DENIED ANY PAIN. NO ISSUES OVERNIGHT. CALL LIGHT IN REACH.
[2018-03-29 08:00] VITALS: BP 121/47
--- NOTE | 2018-03-29 13:52 | NUR ---
AM ASSESSMENT AND VITAL SIGNS COMPLETED DOCUMENTED. PT HAS BEEN COOPERATIVE WITH USING A WALKER IN HER ROOM, MOD I CONTINUES. PT HAS A GOOD APPETITE AND IS INDEPENDENT WITH FEEDING HERSELF. HOURLY ROUNDING CONTINUES.
--- NOTE | 2018-03-29 15:19 | NUR ---
HEAD RESIDENT INFORMED BY DISTANCE EDUCATION DIRECTOR OF NEED TO ARRANGE DISCHARGE PLANNINNG FOR THE PATIENT WITH HH (PT/OT, AND NURSING), WALKER, AND FAMILY TRAINING. D/C ACCOUNTANT BUDGET SPOKE TO THE PATIENT TO DISCUSS THIS INFO, AND SHE INFORMS THAT SHE DID NOT KNOW THAT SHE HAD TO GO HOME WITH HH. D/C ACCOUNTANT BUDGET SPOKE TO THE PATIENT'S SPOUSE AND HE STATES THAT SAME. D/C ACCOUNTANT BUDGET INFORMED THAT PATIENT'S SPOUSE OF THE NEED TO ATTEND FAMILY TRAINING SUNDAY AT 0830. PATIENT'S SPOUSE IN AGREEMENT AND INFORMS THAT HE WILL BE HERE AT 0830. D/C ACCOUNTANT BUDGET SPOKE TO PROVIDER PLUS TO INFORM OF THE NEED TO CHECK BENEFITS FOR THE PATIENT FOR A WALKER AT D/C. JENSEN WITH PROVIDER PLUS RETURNED CALL AND PATIENT IS APPROVED FOR A WALKER AND IT MAY BE DISPENSED FROM THE HOSPITAL DME CLOSET. D/C ACCOUNTANT BUDGET TO COMPLETE ORDER AND PLACE COPY ON THE CHART. PT INFORMED OF THE NEED TO DISPENSE A WALKER FROM THE CLOSET AT D/C. CM WILL REMAIN AVAILABLE TO ASSIST AND FOLLOW NEEDED.
[2018-03-29 16:01] VITALS: BP 121/47
[2018-03-29 20:08] VITALS: BP 120/45
--- NOTE | 2018-03-30 05:33 | NUR ---
ASSUMED CARES AT 1920. ALERT AND ORIENTED. PLEASANT. TRAVIS IN RM WITH WALKER. DENIED ANY ISSUES. DL PICC CEDRIC PATENT. TOOK PILLS WHOLE WITHOUT ISSUES. SAYS THAT IS HAVING SOME STOOLS WHILE ON LINZESS. CALL LIGHT IN REACH.
[2018-03-30 06:42] LABS: CALCIUM 8.3 mg/dL (8.5-10.1); CREATININE 0.5 mg/dL (0.6-1.3)
[2018-03-30 09:00] VITALS: BP 119/49
--- NOTE | 2018-03-30 16:25 | NUR ---
PT HAS PARTICIPATED WITH THERAPIES AND CALLS FOR ASSIST TO AMBULATE TO [facility] IN [place] WITH WALKER,GAITBELT AND SBA. PT MOD I IN ROOM AND USES WALKER TO GO TO BATHROOM. PT REPORTS VOIDING WELL. PT REMAINS ALERT AND ORIENTATED. IN ROOM TO VISIT.
[2018-03-30 20:00] VITALS: BP 115/46
--- NOTE | 2018-03-31 05:12 | NUR ---
ASSUMED PT CARE AT 1920. PT SITTING UP IN BED VISITING WITH DAUGHTER AND . PT ALERT AND ORIENTED X4, POLITE AND COOPERATIVE WITH CARES. PT IS MOD I IN ROOM WITH WALKER. TOOK PILLS WHOLE WITH WATER WITHOUT DIFFICULTY. DENIES PAIN. DOUBLE LUMEN PICC TO CEDRIC PATENT. USES CALL LIGHT APPROPRIATELY. CALL LIGHT AND FREQUENTLY USED ITEMS WITHIN REACH. HOURLY ROUNDING IN PROGESS, WILL CONTINUE TO MONITOR.
[2018-03-31 07:47] VITALS: BP 119/48
--- NOTE | 2018-03-31 17:06 | NUR ---
pt calls for assist as needs and is mod i in room with walker. pt reports voiding well and having several small soft stools. pt remains alert and orientated and visits with . pt plans to discharge to home tomorrow after therapy.
[2018-03-31 20:00] VITALS: BP 107/46; BP 119/86
--- NOTE | 2018-04-01 05:39 | NUR ---
ASSUMED PT CARE AT 1930. PT SITTING UP IN BED VISITING WITH FAMILY PT ALERT AND ORIENTED X4, POLITE AND COOPERATIVE WITH CARES. PT IS MOD I IN ROOM WITH WALKER. PT TO BE DISCHARGED HOME TODAY. TAKES PILLS WHOLE WITH WATER WITHOUT DIFFICULTY. DENIES PAIN. DOUBLE LUMEN PICC TO CEDRIC PATENT. USES CALL LIGHT APPROPRIATELY. CALL LIGHT AND FREQUENTLY USED ITEMS WITHIN REACH. HOURLY ROUNDING IN PROGRESS, WILL CONTINUE TO MONITOR.
[2018-04-01 08:00] VITALS: BP 118/40
[2018-04-01 09:08] VITALS: BP 121/47
--- NOTE | 2018-04-01 09:09 | NUR ---
PATIENT TO D/C HOME TODAY. D/C WOOD MILLING MACHINE TENDER INFORMED P.T. OF THE NEED TO DISPENSE WALKER. D/C WOOD MILLING MACHINE TENDER SPOKE TO [facility] TO INFORM OF THE PATIENT'S D/C, AND FAXED THE PATIENT'S D/C ORDERS. [facility] TO CONTACT THE PATIENT TO ARRANGE VISIT. CM WILL REMAIN AVAILABLE TO ASSIST AND FOLLOW NEEDED.
[2018-04-01] MEDS ORDERED: PREDNISONE 5 MG5 M1 PO (10:31)
[2018-04-01] MEDS ORDERED: LINZESS145 MCG PO (10:33)
--- NOTE | 2018-04-01 12:46 | NUR ---
AM ASSESSMENT AND VITAL SIGNS COMPLETED DOCUMENTED. PT HAS COMPLETED HER AM THERAPY SESSIONS AND HAS MET HER DISCHARGE GOALS. DISCHARGE INSTRUCTIONS, PRESCRIPTIONS AND MEDICATION INFORMATION PROVIDED TO THE PATIENT AND HER . PT AND HER BELONGINGS TRANSPORTED TO THE EXIT, DISCHARGED HOME IN STABLE CONDITION.
--- NOTE | 2018-04-10 16:23 | PLAN ---
[address] [address] REHAB UNIT PLAN OF CARE Name: KOREY RIGGINS Alan Room: [address] IN [facility].#: [id number] Admission: 03/20/18 Attend Phys: Alma Coleman DO Discharge: 04/01/18 Date of : 49 Report #: [id number] THIS REPORT FOR: //name// CC: Craig Coleman DATE OF SERVICE: 03/22/2018 SUBJECTIVE: This is a 73-year-old female admitted with an ICD code of 10.1, COPD exacerbation, alterations in activities of daily living as well as debility. She is , presented to the ER on 03/08/2018 with persistent and increasing cough and shortness of air. She has history of recurrent bronchitis and chest x-ray did show diffuse right lung pneumonia. MEDICAL PROGNOSIS: Good. REHABILITATION PROGNOSIS: Good. Estimated length of stay is 10-12 days with discharge disposition to the home setting where she has supportive family and accessible house. Previous level of function was modified independent to independent with activities of daily living. Current level of function is moderate assistance of 1-2 to max assist with mild impairment and that would be on physical and occupational therapies with mild impairment of expression, social interaction, problem solving, memory and comprehension. Physical therapy will see the patient 60-90 minutes per day, 5 days per week, working on upper and lower body strength, balance, coordination and navigation. Occupational therapy will work with the patient 60-90 minutes per day, 5 days per week, working on upper and lower body, balance, coordination, navigation, bathing, dressing and toileting. Speech language pathology will work with the patient 30-90 minutes per day, 5 days per week working on comprehension, expression, social interaction and expression. This is an overall plan of care, may change from time to time. We will team him weekly and make changes to the plan of care as needed. <ELECTRONICALLY SIGNED> By: Alma Coleman DO 04/10/18 [id number] Coleman DO /nt
== END 2018-04-01 12:55 | disposition home health service (06) | DRG 193 ==
LOC: M.REH 16:03
PROVIDERS: Family Medicine; Internal Medicine Gastroenterology; ADMIT Physical Medicine & Rehabilitation
DX: J16.8 Pneumonia due to other specified infectious organisms (principal); A41.9 Sepsis, unspecified organism; J44.1 Chronic obstructive pulmonary disease with (acute) exacerbation; K56.7 Ileus, unspecified; J44.0 Chronic obstructive pulmonary disease with (acute) lower respiratory infection; E78.5 Hyperlipidemia, unspecified; F17.210 Nicotine dependence, cigarettes, uncomplicated; I10 Essential (primary) hypertension; I95.9 Hypotension, unspecified; M81.0 Age-related osteoporosis without current pathological fracture; Z87.01 Personal history of pneumonia (recurrent); K59.04 Chronic idiopathic constipation; Z79.899 Other long term (current) drug therapy; Z79.82 Long term (current) use of aspirin; R53.81 Other malaise; E87.6 Hypokalemia

== ENCOUNTER → 2018-05-06 | Outpatient (CLI) | payer BC ==
[~2018-05-06] MED LIST changes: +LINZESS145 MCG PO; +PREDNISONE 5 MG5 M1 PO
== END ==
LOC: M.RAD 14:28
DX: J15.8 Pneumonia due to other specified bacteria (principal); J43.1 Panlobular emphysema

== ENCOUNTER 2019-02-05 02:17 | Emergency (ER) | payer BC ==
[~2019-02-05] VITALS: Ht 157.5 cm; Wt 38.1 kg
[2019-02-05 02:50] VITALS: BP 132/67
== END 2019-02-05 02:50 | disposition home or self-care (01) ==
LOC: M.ERS 02:17
DX: L72.8 Other follicular cysts of the skin and subcutaneous tissue (principal); J44.9 Chronic obstructive pulmonary disease, unspecified; E78.5 Hyperlipidemia, unspecified; F17.200 Nicotine dependence, unspecified, uncomplicated; M27.49 Other cysts of jaw